=== PATIENT | female | born 1980 | race Caucasian/White ===

== ENCOUNTER 2017-01-08 08:37 | Emergency (ER) | payer OTHER ==
--- NOTE | 2017-01-08 09:36 | UC ---
Lower Extremity/Ankle HPI - HPI Summary HPI Summary: The patient comes in today for: 1. Right lower leg red and swollen. Onset: "a couple days ago." Palliative/provocative: Nothing makes her symptoms better or worse. Quality: Slight ache--tightness. Region: Right lower leg. Severity: 210 Time: Constant. Associated symptoms: New dyspnea: None. New cough: None. * - History of Current Complaint Chief Complaint: UCLowerExtremity Stated Complaint: RIGHT LEG SWOLLEN Time Seen by Provider: 01/08/17 09:21 Hx Obtained From: Patient Hx Last Menstrual Period: PT NOT SURE DID NOT HAVE REG PERIODS AFTER LAST BABY - Allergies/Home Medications Allergies/Adverse Reactions: Allergies Allergy/AdvReac Type Severity Reaction Status Date / Time Latex Allergy dermatitis Verified 01/08/17 09:00 Home Medications: Home Medications Vitamin TAB* 1 tab PO DAILY 01/08/17 [History Confirmed 01/08/17] Ranitidine HCl [Zantac 150 Maximum Streng] 150 mg PO DAILY 01/08/17 [History Confirmed 01/08/17] PMH/Surg Hx/FS Hx/Imm Hx Previously Healthy: No - 37 weeks . Endocrine History Of: Denies: Diabetes, Thyroid Disease, Hyperthyroidism, Hypothyroidism, Dyslipidemia Cardiovascular History Of: Denies: Cardiac Disorders, Hypertension, Pacemaker/ICD, Myocardial Infarction , Congestive Heart Failure, Atrial Fibrillation, Deep Vein Thrombosis, Bleeding Disorders Respiratory History Of: Denies: COPD, Asthma, Bronchitis, Pneumonia, Pulmonary Embolism GI/ History Of: Reports: Gastroesophageal Reflux Denies: Ulcer, Gastrointestinal Bleed, Gall Bladder Disease, Kidney Stones, Diverticulitis, Renal Disease, Urosepsis Neurological History Of: Denies: TIA, CVA, Dementia, Seizures, Migraine Psychological History Of: Denies: Anxiety, Depression, Bipolar Disorder, Schizophrenia, Post Traumatic Stress Disorder Cancer History Of: Denies: Lung Cancer, Colorectal Cancer, Breast Cancer, Prostate Cancer, Cervical Cancer Other History Of: Negative For: HIV, Hepatitis B, Hepatitis C, Anticoagulant Therapy - Surgical History Surgical History: Yes Surgery Procedure, Year, and Place: eye tear ducts, benign throat tumor as - Family History Known Family History: Positive: Cardiac Disease Negative: Hypertension - Social History Occupation: Employed Full-time Alcohol Use: None Substance Use Type: None Smoking Status (MU): Never Smoked Tobacco Review of Systems Constitutional: Negative Skin: Rash Eyes: Negative ENT: Negative, Sore Throat Respiratory: Cough Cardiovascular: Negative Gastrointestinal: Negative Genitourinary: Negative All Other Systems Reviewed And Are Negative: Yes Physical Exam Triage Information Reviewed: Yes Appearance: Well-Appearing, No Pain Distress, Well-Nourished Vital Signs: Initial Vital Signs Temp 98.2 F 01/08/17 09:01 Pulse 103 01/08/17 09:01 Resp 20 01/08/17 09:01 BP 122/62 01/08/17 09:01 Pulse Ox 99 01/08/17 09:01 Vital Signs Reviewed: Yes Eyes: Positive: Conjunctiva Clear. Negative: Discharge ENT: Positive: Hearing grossly normal. Negative: Pharyngeal erythema, Nasal congestion, Nasal drainage, TM bulging, TM dull, TM red, Tonsillar swelling, Tonsillar exudate Dental: Negative: Gross Decay/Caries @, Dental Fracture @ Neck: Positive: Supple, Nontender, No Lymphadenopathy. Negative: Nuchal Rigidity Respiratory: Positive: Chest non-tender, Lungs clear, No respiratory distress, No accessory muscle use Cardiovascular: Positive: RRR, No Murmur Abdomen Description: Positive: Nontender, No Organomegaly, Soft. Negative: Distended, Guarding Musculoskeletal: Positive: Strength Intact, ROM Intact, No Edema, Other: - There is slight redness to the lower right leg laterally. There is tenderness to palpation of the calf posteriorly. Umm's sign: negative. There is no popliteal tenderness or tenderness with palpation of the right upper inner thigh. Calf circumference: Right and left calf up 27 cm from the medial malleolus: 27 cm bilaterally. Neurological: Positive: Alert, Muscle Tone Normal Psychological: Positive: Age Appropriate Behavior, Consolable Skin: Negative: rashes, breakdown Diagnostics - Radiology No standard instances Xray Interpretation: No Acute Changes - IMPRESSION: NO RIGHT LOWER EXTREMITY DEEP VEIN THROMBOSIS Radiology Interpretation Completed By: Radiologist Lower Extremity Course/Dx - Differential Dx/Diagnosis Differential Diagnosis/HQI/PQRI: Cellulitis, Phlebitis Provider Diagnoses: Right superficial thrombophlebitis Discharge - Discharge Plan Condition: Stable Disposition: HOME Patient Education Materials: Superficial Thrombophlebitis (ED) Referrals: Nica Bee [Physician Care Professional] - Additional Instructions: Please see your primary care provider or your elevator inspector next week to see how well you are doing. For treatment, please use warm compresses, and elevation. IF you get worse, please be seen in the ER.
--- NOTE | 2017-01-08 10:13 | RAD ---
HISTORY: Right calf and ankle redness and swelling COMPARISONS: None relevant TECHNIQUE: Multiple transverse and longitudinal ultrasound images were obtained of the right lower extremity from the level of the common femoral vein inferiorly through to the infrapopliteal veins using grayscale, color Doppler, and spectral Doppler imaging with and without compression and with augmentation. Comparison images were obtained of the contralateral common femoral vein. FINDINGS: VEINS: There is hemostasis of the greater saphenous vein and common femoral vein without thrombosis. The remainder of the venous system of the right lower extremity is compressible throughout its course, with normal flow on color Doppler imaging and normal response to augmentation on spectral Doppler imaging. SOFT TISSUES: Unremarkable. OTHER FINDINGS: None. IMPRESSION: NO RIGHT LOWER EXTREMITY DEEP VEIN THROMBOSIS
[2017-01-08 10:53] VITALS: BP 113/66
== END 2017-01-08 10:54 | disposition home or self-care (01) ==
LOC: UCCORT 08:37
DX: O22.23 Superficial thrombophlebitis in pregnancy, third trimester (principal); I80.01 Phlebitis and thrombophlebitis of superficial vessels of right lower extremity; K21.9 Gastro-esophageal reflux disease without esophagitis; Z3A.37 37 weeks gestation of pregnancy
CPT/HCPCS: 99212; G0463

== ENCOUNTER 2017-01-16 11:23 | Emergency (ER) | payer OTHER ==
[2017-01-16 11:41] VITALS: BP 134/73
--- NOTE | 2017-01-16 11:44 | UC ---
Lower Extremity/Ankle HPI - History of Current Complaint Stated Complaint: LEFT LEG COMPLAINT Time Seen by Provider: 01/16/17 11:36 Hx Obtained From: Patient Hx Last Menstrual Period: PT NOT SURE DID NOT HAVE REG PERIODS AFTER LAST BABY ?: Yes Onset/Duration: Gradual Onset - Bilateral LE swelling. Right first, now left. Had a negative doppler on the right leg. Severity Initially: Mild Severity Currently: Moderate Pain Intensity: 0 Aggravating Factor(s): Standing, Ambulation Alleviating Factor(s): Rest, Elevation Able to Bear Weight: Yes - Risk Factors Gout Risk Factors: Negative DVT Risk Factors: Septic Arthritis Risk Factor: Negative - Allergies/Home Medications Allergies/Adverse Reactions: Allergies Allergy/AdvReac Type Severity Reaction Status Date / Time Latex Allergy dermatitis Verified 01/08/17 09:00 PMH/Surg Hx/FS Hx/Imm Hx Endocrine History Of: Denies: Diabetes, Thyroid Disease, Hyperthyroidism, Hypothyroidism, Dyslipidemia Cardiovascular History Of: Denies: Cardiac Disorders, Hypertension, Pacemaker/ICD, Myocardial Infarction , Congestive Heart Failure, Atrial Fibrillation, Deep Vein Thrombosis, Bleeding Disorders Respiratory History Of: Denies: COPD, Asthma, Bronchitis, Pneumonia, Pulmonary Embolism GI/ History Of: Reports: Gastroesophageal Reflux Denies: Ulcer, Gastrointestinal Bleed, Gall Bladder Disease, Kidney Stones, Diverticulitis, Renal Disease, Urosepsis Neurological History Of: Denies: TIA, CVA, Dementia, Seizures, Migraine Psychological History Of: Denies: Anxiety, Depression, Bipolar Disorder, Schizophrenia, Post Traumatic Stress Disorder Cancer History Of: Denies: Lung Cancer, Colorectal Cancer, Breast Cancer, Prostate Cancer, Cervical Cancer Other History Of: Negative For: HIV, Hepatitis B, Hepatitis C, Anticoagulant Therapy - Surgical History Surgical History: Yes Surgery Procedure, Year, and Place: eye tear ducts, benign throat tumor as - Family History Known Family History: Positive: Cardiac Disease Negative: Hypertension - Social History Occupation: Employed Full-time Lives: With Family Alcohol Use: None Substance Use Type: None Smoking Status (MU): Never Smoked Tobacco Review of Systems Musculoskeletal: Edema All Other Systems Reviewed And Are Negative: Yes Physical Exam Triage Information Reviewed: Yes Appearance: Well-Appearing, No Pain Distress, Well-Nourished Vital Signs Reviewed: Yes Eyes: Positive: Conjunctiva Clear Neck exam: Normal Respiratory Exam: Normal Cardiovascular Exam: Normal Abdominal Exam: Other - Gravid uterus with vertex presentation. Abdomen Description: Positive: Nontender Musculoskeletal Exam: Normal Musculoskeletal: Positive: Edema @ - bilateral LE 1-2 + pretibial. Negative homans bilaterally. Neurological Exam: Normal Psychological Exam: Normal Skin Exam: Normal Lower Extremity Course/Dx - Differential Dx/Diagnosis Differential Diagnosis/HQI/PQRI: Cellulitis, DVT, Strain Provider Diagnoses: Localized Edema. 3rd trimester Discharge - Discharge Plan Condition: Stable Disposition: HOME Patient Education Materials: Leg Edema (ED) Additional Instructions: Keep legs elevated. Avoid salt. Long soaks in the tub can help get rid of the fluid along with compression stockings to prevent the fluid from accumulating.
== END 2017-01-16 12:29 | disposition home or self-care (01) ==
LOC: UCCORT 11:23
DX: O26.893 Other specified pregnancy related conditions, third trimester (principal); Z3A.00 Weeks of gestation of pregnancy not specified; R60.0 Localized edema
CPT/HCPCS: 99212; G0463

== ENCOUNTER 2017-01-20 11:27 | Emergency (ER) | payer OTHER ==
[2017-01-20 12:12] VITALS: BP 119/64
--- NOTE | 2017-01-20 12:23 | UC ---
Lower Extremity/Ankle HPI - HPI Summary HPI Summary: c/o progressive leg swelling over the last week or so. she has not had pain until today. the pain is in the back of both calves, although the left hurts more than the right. she says the right calf is red and warm. she called her midwives office this morning and was recommended to come here for evaluation to save her a trip to [place]. Maya Ansari. She is 38 weeks 4 days . She denies history of preeclampsia. The redness is only to b/l anterior lower shins. not warm. there is mild tenderness in b/l posterior calves. started today. no chest pains or SOB, not a smoker. no personal or FHx DVTs/PEs or bleeding/clotting disorders. movement is nml, > 10/hr. no vaginal bleeding or spotting. - History of Current Complaint Chief Complaint: UCLowerExtremity Stated Complaint: LEFT LEG PAIN Time Seen by Provider: 01/20/17 12:20 Hx Last Menstrual Period: PT NOT SURE DID NOT HAVE REG PERIODS AFTER LAST BABY - Allergies/Home Medications Allergies/Adverse Reactions: Allergies Allergy/AdvReac Type Severity Reaction Status Date / Time Latex Allergy Skin Verified 01/20/17 12:02 Irritation PMH/Surg Hx/FS Hx/Imm Hx Previously Healthy: Yes Endocrine History Of: Denies: Diabetes, Thyroid Disease, Hyperthyroidism, Hypothyroidism, Dyslipidemia Cardiovascular History Of: Denies: Cardiac Disorders, Hypertension, Pacemaker/ICD, Myocardial Infarction , Congestive Heart Failure, Atrial Fibrillation, Deep Vein Thrombosis, Bleeding Disorders Respiratory History Of: Denies: COPD, Asthma, Bronchitis, Pneumonia, Pulmonary Embolism GI/ History Of: Reports: Gastroesophageal Reflux Denies: Ulcer, Gastrointestinal Bleed, Gall Bladder Disease, Kidney Stones, Diverticulitis, Renal Disease, Urosepsis Neurological History Of: Denies: TIA, CVA, Dementia, Seizures, Migraine Psychological History Of: Denies: Anxiety, Depression, Bipolar Disorder, Schizophrenia, Post Traumatic Stress Disorder Cancer History Of: Denies: Lung Cancer, Colorectal Cancer, Breast Cancer, Prostate Cancer, Cervical Cancer Other History Of: Negative For: HIV, Hepatitis B, Hepatitis C, Anticoagulant Therapy - Surgical History Surgical History: Yes Surgery Procedure, Year, and Place: eye tear ducts, benign throat tumor as - Family History Known Family History: Positive: Cardiac Disease, Other - NO Fhx DVT/PE or clotting d/o. Negative: Hypertension - Social History Alcohol Use: None Substance Use Type: None Smoking Status (MU): Never Smoked Tobacco Review of Systems Constitutional: Negative Skin: Negative Eyes: Negative ENT: Negative Respiratory: Negative Cardiovascular: Negative Gastrointestinal: Negative Genitourinary: Negative Motor: Negative Neurovascular: Negative Musculoskeletal: Calf Tenderness Neurological: Negative Psychological: Negative All Other Systems Reviewed And Are Negative: Yes Physical Exam Triage Information Reviewed: Yes Appearance: Well-Appearing, No Pain Distress, Well-Nourished - very pleasant. Vital Signs: Initial Vital Signs Temp 98.1 F 01/20/17 11:56 Pulse 113 01/20/17 11:56 Resp 14 01/20/17 11:56 BP 119/64 01/20/17 11:56 Pulse Ox 99 01/20/17 11:56 Vital Signs Reviewed: Yes Eye Exam: Normal ENT Exam: Normal Dental Exam: Normal Neck exam: Normal Neck: Positive: Supple, Nontender, No Lymphadenopathy Respiratory Exam: Normal Respiratory: Positive: Lungs clear, Normal breath sounds, No respiratory distress, No accessory muscle use Cardiovascular Exam: Normal - HR 80 on MD manual apical check. regular. Cardiovascular: Positive: RRR, No Murmur, Pulses Normal, Brisk Capillary Refill Abdomen Description: Positive: Nontender - gravid, Soft Bowel Sounds: Positive: Present Musculoskeletal: Positive: Other: - b/l calves with mild tenderness inferiorly. no erythema, cool to touch. Neurological Exam: Normal Psychological Exam: Normal Skin Exam: Normal Lower Extremity Course/Dx - Course Course Of Treatment: b/l leg swelling with neg b/l dopplers for DVT - Differential Dx/Diagnosis Differential Diagnosis/HQI/PQRI: Cellulitis, DVT, Infection, Sprain, Strain, Other - swelling Provider Diagnoses: , leg edema Discharge - Discharge Plan Condition: Stable Disposition: HOME Patient Education Materials: Leg Edema (ED) Referrals: Lena Taveras MD [Primary Care Provider] - Additional Instructions: Keep your follow up appt with Maya tomorrow. B/L ultrasounds were negative for DVTs in your legs. I have printed out a copy for you to have.
--- NOTE | 2017-01-20 14:14 | RAD ---
Indication: Bilateral leg edema. Duplex Doppler sonography of the deep venous system of both lower extremities was performed. Bilaterally the common femoral veins, proximal greater saphenous veins, proximal deep femoral veins, femoral veins, popliteal veins, posterior tibial veins and peroneal veins appear patent and compressible. IMPRESSION: NO EVIDENCE OF DEEP VENOUS THROMBOSIS OF EITHER LOWER EXTREMITY IS PRESENT.
== END 2017-01-20 14:23 | disposition home or self-care (01) ==
LOC: UCCORT 11:27
DX: O26.893 Other specified pregnancy related conditions, third trimester (principal); Z3A.38 38 weeks gestation of pregnancy; R22.43 Localized swelling, mass and lump, lower limb, bilateral
CPT/HCPCS: 81003; 93970; 99211; G0463